=== PATIENT | female | born 1980 | race Caucasian/White ===

== ENCOUNTER 2023-04-03 21:21 | Emergency (ER) | payer SELFPAY ==
[2023-04-04 00:19] LABS: SARS-CoV-2 NAA Rapid Test Not Detected (NotDetected)
== END 2023-04-03 22:55 | disposition home or self-care (01) ==
LOC: ERS 21:21
DX: J06.9 Acute upper respiratory infection, unspecified (principal); Z20.822 Contact with and (suspected) exposure to COVID-19
CPT/HCPCS: 99283

== ENCOUNTER 2023-12-18 20:39 | Emergency (ER) | payer OTHER ==
[2023-12-18 22:20] LABS: SARS-CoV-2 NAA Rapid Test Not Detected (NotDetected)
== END 2023-12-18 21:07 | disposition home or self-care (01) ==
LOC: ERS 20:39
DX: J06.9 Acute upper respiratory infection, unspecified (principal); F17.290 Nicotine dependence, other tobacco product, uncomplicated
CPT/HCPCS: 99283